=== PATIENT | female | born 1985 | race Caucasian/White ===

== ENCOUNTER 2021-09-22 12:55 | Inpatient (IN) | payer OTHER, SELFPAY ==
[~2021-09-22] VITALS: Ht 167.6 cm; Wt 87.3 kg
[2021-09-22] MEDS ORDERED: EFFE150C2 PO (13:12)
[2021-09-22] MEDS ORDERED: HORMONE SUPPLEMENT (13:12)
[2021-09-22] MEDS ORDERED: VALI5TAB PO (13:12)
[2021-09-22] MEDS ORDERED: SERO200T PO (13:12)
[2021-09-22 15:40] LABS: AMPHETAMINES LEVEL URINE NEGATIVE (NEGATIVE); BARBITURATES URINE NEGATIVE (NEGATIVE); BENZODIAZEPINES URINE POSITIVE (NEGATIVE); CANNABINOIDS URINE NEGATIVE (NEGATIVE); COCAINE METABOLITE URINE NEGATIVE (NEGATIVE); METHADONE URINE NEGATIVE (NEGATIVE); OPIATES URINE NEGATIVE (NEGATIVE); PHENCYCLIDINE URINE NEGATIVE (NEGATIVE)
[2021-09-22 15:54] LABS: HEMATOCRIT 47.9 % (36.0-47.0); HEMOGLOBIN 15.8 g/dl (12.0-15.5); MEAN CORPUSCULAR HEMOGLOBIN 30.7 pg (27.0-33.0); PLATELET COUNT, AUTOMATED 375 10^3/uL (150-450); RED BLOOD COUNT 5.15 10^6/uL (4.00-5.40); WHITE BLOOD COUNT 12.2 10^3/uL (4.0-10.0)
[2021-09-22 16:22] LABS: HCG, SERUM QUALITATIVE NEGATIVE (NEGATIVE)
[2021-09-22 16:27] LABS: ACETAMINOPHEN LEVEL < 2.0 UG/ML (10.0-30.0); ALBUMIN 4.5 GM/DL (3.2-5.2); ALT/SGPT 54 U/L (12-78); BILIRUBIN,DIRECT < 0.1 MG/DL (0.0-0.2); BILIRUBIN,TOTAL 0.2 MG/DL (0.2-1.0); BLOOD UREA NITROGEN 9 MG/DL (7-18); CALCIUM LEVEL 10.2 MG/DL (8.5-10.1); CARBON DIOXIDE LEVEL 28 MEQ/L (21-32); CHLORIDE LEVEL 108 MEQ/L (98-107); CREATININE FOR GFR 0.86 MG/DL (0.55-1.30); ETHYL ALCOHOL (ETHANOL) < 0.003 % (0.000-0.010); GLOMERULAR FILTRATION RATE > 60.0 (>60); GLUCOSE, FASTING 94 MG/DL (70-100); POTASSIUM SERUM 4.3 MEQ/L (3.5-5.1); SALICYLATE LEVEL 4.5 MG/DL (5.0-30.0); SODIUM LEVEL 141 MEQ/L (136-145); THYROID STIMULATING HORMONE 0.863 uIU/ML (0.358-3.740); TOTAL PROTEIN 8.1 GM/DL (6.4-8.2)
[2021-09-22 17:03] LABS: RSV AMPLIFICATION NEGATIVE (NEGATIVE)
[2021-09-22] MEDS ORDERED: TOPI50TA9 PO (17:46)
[2021-09-22] MEDS ORDERED: PRAZ1CAP PO (17:46)
[2021-09-22] MEDS ORDERED: GABA800T4 PO (17:46)
[2021-09-22] MEDS ORDERED: HOME MED LIST COMPLETE! XX SCH (18:00)
[2021-09-22] MEDS ORDERED: ACETAMINOPHEN TAB 650MG DOSE (2X325MG) PO PRN (18:10)
[2021-09-22] MEDS ORDERED: MOM 30ML SUSPENSION UDC PO PRN (18:10)
[2021-09-22] MEDS ORDERED: MAALOX 30 ML SUSP *UDC PO PRN (18:10)
[2021-09-22] MEDS ORDERED: diazePAM 5MG TABLET PO STA (18:45)
[2021-09-22 21:19] VITALS: BP 120/81
[2021-09-22] MEDS: QUEtiapine FUMARATE 200 MG TAB PO SCH (21:48)
[2021-09-23] MEDS: NICOTINE 21MG/24HR 1 EA TRANSDERMAL TD PRN (08:03)
[2021-09-23] MEDS ORDERED: diazePAM 2 MG TAB PO ONE (08:50)
[2021-09-23] MEDS: DIVALPROEX 250MG *ER* TAB PO SCH ×2 (09:00→11:02)
[2021-09-23] MEDS ORDERED: traZODone 50 MG TAB PO PRN (10:15)
--- NOTE | 2021-09-23 10:39 | CR.PDOC ---
General Date of Consultation: Sep 23, 2021 Attending Physician: Corrina Oliveira MD Consultation REASON FOR CONSULTATION/CHIEF COMPLAINT: Medical H&P HISTORY OF PRESENT ILLNESS: Patient is a 36-year-old female with past medical history of agoraphobia, PTSD, bipolar disorder with schizoaffective tendencies, depression, anxiety who presented to [facility] emergency room after being brought from [facility] ER for increased martine and decreased sleep. The patient also expressed increased feelings of depression, hopelessness, helplessness, racing thoughts. She denied homicidal or suicidal ideation, auditory or visual hallucinations. The patient was unkept and kept stating that she has not been able to sleep. The patient was later admitted to inpatient mental health unit after arrival to [facility] On my evaluation this AM, patient was not very engaging in conversation during evaluation. She did admit to increased feelings of depression and decreased sleep. She appeared uncapped. She denied chest pain, shortness of breath, fevers, chills, nausea, vomiting, lightheadedness or dizziness. REVIEW OF SYSTEMS: Negative except for what is mentioned above. PAST MEDICAL HISTORY: Agoraphobia, PTSD, bipolar disorder with schizoaffective tendencies, depression, anxiety PAST SURGICAL HISTORY: Total hysterectomy FAMILY HISTORY: no significant family history SOCIAL HISTORY: Smoker. Denies alcohol or illicit drug use. Lives alone in the local community. Follows with [facility]. ALLERGIES: Please see below. HOME MEDICATIONS: Please see below. PHYSICAL EXAMINATION: VS: Stable on RA CONSTITUTIONAL: No acute distress, resting comfortably, AAO x 3 EYES: PERRLA, EOM intact HENT, MOUTH: Normocephalic, atraumatic, moist mucous membranes, NECK: SUPPLE, no JVD, no lymphadenopathy, no carotid bruit CV: Regular rate and rhythm, S1S2 normal, no murmurs/rubs/gallops RESPIRATORY: Clear to auscultation bilaterally, no rales/rhonchi/wheezes GI: obese abd, BS positive in 4 quadrants, soft, nontender, nondistended, no rebound or guarding, no organomegaly : Deferred MUSCULOSKELETAL: Normal ROM. No cyanosis, clubbing, swelling, joint deformity, e xtremity edema INTEGUMENTARY: Intact, no rashes, no lesions, no erythema NEUROLOGIC: Cranial Nerves II-XII are intact, no focal deficits PSYCHIATRIC: Mood and affect are normal LABORATORY DATA: Please see below IMAGING: none ASSESSMENT: 36-year-old female with past medical history of agoraphobia, PTSD, bipolar disorder with schizoaffective tendencies, depression, anxiety admitted to [facility] for bipolar disorder. PLAN: Bipolar disorder, uncontrolled -Plan per psychiatric team Depression / anxiety / PTSD -Plan per psychiatry team DISPOSITION: Thank you kindly for this consult. We are signing off but if we are needed again, please do not hesitate to contact us at any time. Vital Signs/I&O Vital Signs Date Time Temp Pulse Resp B/P (MAP) Pulse Ox O2 Delivery O2 Flow Rate FiO2 09/22/21 21:19 97.7 81 16 120/81 (94) 98 Room Air Laboratory Data Labs 24H Laboratory Tests 2 09/22/21 15:20: Urine Opiates Screen NEGATIVE, Urine Methadone Screen NEGATIVE, Urine Barbiturates Screen NEGATIVE, Urine Phencyclidine Screen NEGATIVE, Urine Amphetamines Screen NEGATIVE, Urine Benzodiazepines Screen POSITIVEH, Urine Cocaine Metabolite Screen NEGATIVE, Urine Cannabinoids Screen NEGATIVE 09/22/21 15:42: Nucleated Red Blood Cells % (auto) 0.0, Anion Gap 5L, Glomerular Filtration Rate > 60.0, Calcium Level 10.2H, Total Bilirubin 0.2, Direct Bilirubin < 0.1, Aspartate Amino Transf (AST/SGOT) 27, Alanine Aminotransferase (ALT/SGPT) 54, Alkaline Phosphatase 109, Total Protein 8.1, Albumin 4.5, Albumin/Globulin Ratio 1.3, Thyroid Stimulating Hormone (TSH) 0.863, Human Chorionic Gonadotropin, Qual NEGATIVE, Salicylates Level 4.5L, Acetaminophen Level < 2.0L, Ethyl Alcohol Level < 0.003, Coronavirus (COVID-19)(PCR) NEGATIVE, Influenza Type A (RT-PCR) NEGATIVE, Influenza Type B (RT-PCR) NEGATIVE, Respiratory Syncytial Virus (PCR) NEGATIVE CBC/BMP Laboratory Tests 09/22/21 15:42 Allergies Coded Allergies: fluoxetine (Verified Allergy, Unknown, 09/22/21) hydromorphone (Verified Allergy, Unknown, 09/22/21) hydroxyzine (Verified Allergy, Unknown, 09/22/21) lorazepam (Verified Allergy, Unknown, 09/22/21) zolpidem (Verified Allergy, Unknown, 09/22/21) Home Medications Scheduled Gabapentin (Gabapentin) 800 Mg Tablet, 800 MG PO TID, (Reported) Prazosin Hcl (Prazosin HCl) 1 Mg Capsule, 1 MG PO QHS, (Reported) Quetiapine Fumarate (Seroquel) 200 Mg Tablet, 200 MG PO QHS, (Reported) Topiramate (Topiramate) 50 Mg Tablet, 50 MG PO QHS, (Reported) Venlafaxine HCl (Effexor Xr) 150 Mg Cap.er.24h, 150 MG PO DAILY, (Reported) Scheduled PRN Diazepam (Valium) 5 Mg Tablet, 5 MG PO TID PRN for anxiety, (Reported) Miscellaneous Medications [hormone supplement] , (Reported) Corrina Oliveira MD Sep 23, 2021 10:39
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
[2021-09-23] MEDS: GABAPENTIN 400MG CAP PO SCH ×3 (11:03→20:02)
[2021-09-23] MEDS: VENLAFAXINE **XR** 75MG CAPSULE PO SCH (11:03)
[2021-09-23 12:08] LABS: HEMOGLOBIN A1c 5.5 %
[2021-09-23 12:17] LABS: CHOLESTEROL RISK RATIO 3.532 (<5)
[2021-09-23] MEDS: diazePAM 5MG TABLET PO SCH ×2 (16:39→20:02)
[2021-09-23 18:00] VITALS: BP 145/82
[2021-09-23] MEDS: IBUPROFEN 600MG TAB PO PRN (19:57)
[2021-09-23] MEDS: QUEtiapine FUMARATE 200 MG TAB PO SCH (20:01)
[2021-09-23] MEDS ORDERED: PRAZOSIN 1 MG CAP PO SCH (21:00)
[2021-09-24 06:42] VITALS: BP 150/87
[2021-09-24] MEDS: DIVALPROEX 250MG *ER* TAB PO SCH (08:05)
[2021-09-24] MEDS: VENLAFAXINE **XR** 75MG CAPSULE PO SCH (08:05)
[2021-09-24] MEDS: GABAPENTIN 400MG CAP PO SCH ×3 (08:05→20:29)
[2021-09-24] MEDS: diazePAM 5MG TABLET PO SCH ×3 (08:05→20:29)
[2021-09-24] MEDS: NICOTINE 21MG/24HR 1 EA TRANSDERMAL TD PRN (08:05)
[2021-09-24] MEDS: IBUPROFEN 600MG TAB PO PRN ×2 (08:08→15:22)
[2021-09-24] MEDS ORDERED: diazePAM 2 MG TAB PO ONE (13:00)
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
[2021-09-24] MEDS ORDERED: VENLAFAXINE 37.5 MG TAB PO ONE (14:00)
[2021-09-24 18:57] VITALS: BP 136/86
[2021-09-24 20:28] VITALS: BP 136/86
[2021-09-24] MEDS: QUEtiapine FUMARATE 200 MG TAB PO SCH (20:29)
[2021-09-24] MEDS ORDERED: PRAZOSIN 1 MG CAP PO SCH (21:00)
[2021-09-25] MEDS: IBUPROFEN 600MG TAB PO PRN (04:43)
[2021-09-25 06:40] VITALS: BP 132/66
[2021-09-25] MEDS: GABAPENTIN 400MG CAP PO SCH (08:04)
[2021-09-25] MEDS: NICOTINE 21MG/24HR 1 EA TRANSDERMAL TD PRN (08:05)
[2021-09-25] MEDS: diazePAM 5MG TABLET PO SCH (08:05)
[2021-09-25] MEDS ORDERED: VENLAFAXINE **XR** 75MG CAPSULE PO SCH (09:00)
[2021-09-25] MEDS ORDERED: VENL75CA47 PO (11:00)
[2021-09-25] MEDS ORDERED: NICO21PAT TD (11:00)
[2021-09-25] MEDS ORDERED: MINI1CAP PO (11:00)
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
== END 2021-09-25 14:30 | disposition home or self-care (01) | DRG 755 ==
LOC: M ED 12:55 → M ED INP 18:06 → M PSY 21:10
PROVIDERS: ADMIT Psychiatry & Neurology Psychiatry; ATTEND Psychiatry & Neurology Psychiatry
DX: F43.10 Post-traumatic stress disorder, unspecified (principal); F60.3 Borderline personality disorder; F41.1 Generalized anxiety disorder; F31.9 Bipolar disorder, unspecified; G47.00 Insomnia, unspecified; F17.210 Nicotine dependence, cigarettes, uncomplicated; Z20.822 Contact with and (suspected) exposure to COVID-19; Z79.899 Other long term (current) drug therapy; Z88.8 Allergy status to other drugs, medicaments and biological substances

== ENCOUNTER 2022-06-22 21:47 | Inpatient (IN) | payer OTHER ==
[~2022-06-22] VITALS: Ht 167.6 cm; Wt 100.0 kg
[~2022-06-22 21:47] MED LIST: EFFE150C2 PO; GABA800T4 PO; HORMONE SUPPLEMENT; MINI1CAP PO; NICO21PAT TD; PRAZ1CAP PO; SERO200T PO; TOPI50TA9 PO; VALI5TAB PO; VENL75CA47 PO
[2022-06-22 22:40] LABS: HEMATOCRIT 45.4 % (36.0-47.0); HEMOGLOBIN 15.3 g/dl (12.0-15.5); MEAN CORPUSCULAR HEMOGLOBIN 30.8 pg (27.0-33.0); MEAN CORPUSCULAR HGB CONC 33.7 g/dl (32.0-36.5); MEAN CORPUSCULAR VOLUME 91.5 fl (80.0-96.0); PLATELET COUNT, AUTOMATED 343 10^3/uL (150-450); RED BLOOD COUNT 4.96 10^6/uL (4.00-5.40); WHITE BLOOD COUNT 14.9 10^3/uL (4.0-10.0)
[2022-06-22] MEDS ORDERED: diazePAM 2 MG TAB PO ONE (22:40)
[2022-06-22 23:09] LABS: RSV AMPLIFICATION NEGATIVE (NEGATIVE)
[2022-06-22 23:12] LABS: AMPHETAMINES LEVEL URINE NEGATIVE (NEGATIVE); BARBITURATES URINE NEGATIVE (NEGATIVE); BENZODIAZEPINES URINE POSITIVE (NEGATIVE); CANNABINOIDS URINE POSITIVE (NEGATIVE); COCAINE METABOLITE URINE NEGATIVE (NEGATIVE); METHADONE URINE NEGATIVE (NEGATIVE); OPIATES URINE NEGATIVE (NEGATIVE); PHENCYCLIDINE URINE NEGATIVE (NEGATIVE)
[2022-06-22 23:46] LABS: ALBUMIN 4.9 GM/DL (3.2-5.2); ALT/SGPT 97 U/L (12-78); BILIRUBIN,DIRECT < 0.1 MG/DL (0.0-0.2); BILIRUBIN,TOTAL 0.3 MG/DL (0.2-1.0); BLOOD UREA NITROGEN 12 MG/DL (7-18); CARBON DIOXIDE LEVEL 26 MEQ/L (21-32); CHLORIDE LEVEL 104 MEQ/L (98-107); CREATININE FOR GFR 0.96 MG/DL (0.55-1.30); ETHYL ALCOHOL (ETHANOL) 0.005 % (0.000-0.010); GLOMERULAR FILTRATION RATE > 60.0 (>60); GLUCOSE, FASTING 98 MG/DL (70-100); POTASSIUM SERUM 4.4 MEQ/L (3.5-5.1); SALICYLATE LEVEL 4.8 MG/DL (5.0-30.0); SODIUM LEVEL 136 MEQ/L (136-145); TOTAL PROTEIN 8.2 GM/DL (6.4-8.2)
[2022-06-23] LABS: HCG, SERUM QUALITATIVE NEGATIVE (NEGATIVE)
[2022-06-23 00:33] LABS: ACETAMINOPHEN LEVEL < 2.0 UG/ML (10.0-30.0)
[2022-06-23] MEDS ORDERED: PRAZ1CAP PO (01:28)
[2022-06-23] MEDS ORDERED: QUET300T2 PO (01:29)
[2022-06-23] MEDS ORDERED: VENL150C43 PO (01:29)
[2022-06-23] MEDS ORDERED: QUET50TA4 PO (01:29)
[2022-06-23] MEDS ORDERED: HOME MED LIST COMPLETE! XX SCH (01:30)
[2022-06-23] MEDS ORDERED: MOM 30ML SUSPENSION UDC PO PRN (03:25)
[2022-06-23 03:38] VITALS: BP 154/66
[2022-06-23 06:22] VITALS: BP 125/79
[2022-06-23] MEDS: GABAPENTIN 400MG CAP PO SCH ×3 (07:40→20:16)
[2022-06-23] MEDS: VENLAFAXINE **XR** 75MG CAPSULE PO SCH (07:41)
[2022-06-23] MEDS: NICOTINE 21MG/24HR 1 EA TRANSDERMAL TD PRN (07:41)
[2022-06-23] MEDS ORDERED: QUEtiapine FUMARATE 100 MG TAB PO SCH (09:00)
[2022-06-23] MEDS: diazePAM 5MG TABLET PO PRN (09:14)
[2022-06-23] MEDS ORDERED: traMADol 50 MG TAB PO ONE (10:00)
[2022-06-23] MEDS: IBUPROFEN 200MG TAB PO SCH ×2 (12:30→18:52)
[2022-06-23 16:12] VITALS: BP 122/78
[2022-06-23] MEDS: traMADol 50 MG TAB PO PRN (16:46)
[2022-06-23] MEDS: MAALOX 30 ML SUSP *UDC PO PRN (16:47)
[2022-06-23] MEDS: traZODone 50 MG TAB PO PRN (20:16)
[2022-06-23] MEDS: PRAZOSIN 1 MG CAP PO SCH (20:17)
[2022-06-23] MEDS ORDERED: QUEtiapine FUMARATE 25 MG TAB PO SCH (21:00)
[2022-06-23] MEDS ORDERED: QUEtiapine FUMARATE 50MG TAB PO SCH (21:00)
[2022-06-24] MEDS: diazePAM 5MG TABLET PO PRN ×2 (02:41→19:49)
[2022-06-24] MEDS: traMADol 50 MG TAB PO PRN ×3 (02:42→15:02)
[2022-06-24 06:31] VITALS: BP 129/85
[2022-06-24] MEDS: QUEtiapine FUMARATE 25 MG TAB PO SCH (07:52)
[2022-06-24] MEDS: VENLAFAXINE **XR** 75MG CAPSULE PO SCH (07:52)
[2022-06-24] MEDS: GABAPENTIN 400MG CAP PO SCH ×3 (07:53→20:38)
[2022-06-24] MEDS: NICOTINE 21MG/24HR 1 EA TRANSDERMAL TD PRN (07:54)
[2022-06-24] MEDS: IBUPROFEN 200MG TAB PO SCH ×3 (08:00→17:21)
[2022-06-24] MEDS: OLANZapine ORAL DISINTEGRATING TAB 5MG PO PRN ×2 (10:36→17:21)
[2022-06-24 16:17] VITALS: BP 124/73
[2022-06-24] MEDS: PRAZOSIN 1 MG CAP PO SCH (20:38)
[2022-06-24] MEDS: QUEtiapine FUMARATE 100 MG TAB PO SCH (20:38)
[2022-06-25 06:19] VITALS: BP 141/75
[2022-06-25] MEDS: VENLAFAXINE **XR** 75MG CAPSULE PO SCH (08:43)
[2022-06-25] MEDS: NICOTINE 21MG/24HR 1 EA TRANSDERMAL TD PRN (08:43)
[2022-06-25] MEDS: traMADol 50 MG TAB PO PRN ×2 (08:43→16:56)
[2022-06-25] MEDS: GABAPENTIN 400MG CAP PO SCH ×3 (08:43→20:20)
[2022-06-25] MEDS: IBUPROFEN 200MG TAB PO SCH ×3 (08:44→18:14)
[2022-06-25] MEDS: QUEtiapine FUMARATE 25 MG TAB PO SCH (08:44)
[2022-06-25] MEDS: OLANZapine ORAL DISINTEGRATING TAB 5MG PO PRN (10:36)
[2022-06-25] MEDS: ACETAMINOPHEN TAB 650MG DOSE (2X325MG) PO PRN ×2 (10:46→20:21)
[2022-06-25] MEDS: LIDOCAINE 5% (LIDODERM) PATCH TD SCH (13:50)
[2022-06-25] MEDS: diazePAM 5MG TABLET PO PRN (16:57)
[2022-06-25 17:28] VITALS: BP 112/65
[2022-06-25] MEDS: traZODone 50 MG TAB PO PRN (20:20)
[2022-06-25] MEDS: PRAZOSIN 1 MG CAP PO SCH (20:20)
[2022-06-25] MEDS: QUEtiapine FUMARATE 100 MG TAB PO SCH (20:20)
[2022-06-25] MEDS: **NOTE PATIENT COMMENT** MISC XX SCH (20:24)
[2022-06-26 06:26] VITALS: BP 132/89
[2022-06-26] MEDS: traMADol 50 MG TAB PO PRN ×3 (06:47→19:52)
[2022-06-26 07:25] LABS: CHOLESTEROL RISK RATIO 5.386 (<5)
[2022-06-26] MEDS: QUEtiapine FUMARATE 25 MG TAB PO SCH (08:07)
[2022-06-26] MEDS: GABAPENTIN 400MG CAP PO SCH ×3 (08:07→22:03)
[2022-06-26] MEDS: NICOTINE 21MG/24HR 1 EA TRANSDERMAL TD PRN (08:07)
[2022-06-26] MEDS: VENLAFAXINE **XR** 75MG CAPSULE PO SCH (08:07)
[2022-06-26] MEDS: LIDOCAINE 5% (LIDODERM) PATCH TD SCH (08:08)
[2022-06-26] MEDS: IBUPROFEN 200MG TAB PO SCH ×3 (08:08→17:24)
[2022-06-26] MEDS: OLANZapine ORAL DISINTEGRATING TAB 5MG PO PRN (12:59)
[2022-06-26 18:09] VITALS: BP 151/83
[2022-06-26] MEDS: diazePAM 5MG TABLET PO PRN (19:51)
[2022-06-26] MEDS: traZODone 50 MG TAB PO PRN (22:02)
[2022-06-26] MEDS: **NOTE PATIENT COMMENT** MISC XX SCH (22:03)
[2022-06-26] MEDS: QUEtiapine FUMARATE 100 MG TAB PO SCH (22:03)
[2022-06-26] MEDS: PRAZOSIN 1 MG CAP PO SCH (22:03)
[2022-06-27 06:51] VITALS: BP 141/79
[2022-06-27] MEDS: VENLAFAXINE **XR** 75MG CAPSULE PO SCH (08:12)
[2022-06-27] MEDS: GABAPENTIN 400MG CAP PO SCH ×3 (08:12→21:47)
[2022-06-27] MEDS: QUEtiapine FUMARATE 25 MG TAB PO SCH (08:12)
[2022-06-27] MEDS: traMADol 50 MG TAB PO PRN ×2 (08:13→18:02)
[2022-06-27] MEDS: NICOTINE 21MG/24HR 1 EA TRANSDERMAL TD PRN (08:13)
[2022-06-27] MEDS: LIDOCAINE 5% (LIDODERM) PATCH TD SCH (08:14)
[2022-06-27] MEDS: IBUPROFEN 200MG TAB PO SCH ×3 (08:15→18:00)
[2022-06-27] MEDS ORDERED: QUET1TAB17 PO (08:46)
[2022-06-27] MEDS ORDERED: NICO21PAT TD (08:46)
[2022-06-27] MEDS ORDERED: GABA800T4 PO (08:46)
[2022-06-27] MEDS ORDERED: QUET300T2 PO (08:46)
[2022-06-27] MEDS ORDERED: PRAZ1CAP PO (08:46)
[2022-06-27] MEDS ORDERED: TRAZ-252 PO (08:46)
[2022-06-27] MEDS ORDERED: VENL75CA47 PO (08:46)
[2022-06-27] MEDS ORDERED: LIDO5TD TD (08:46)
[2022-06-27] MEDS: OLANZapine ORAL DISINTEGRATING TAB 5MG PO PRN (10:55)
[2022-06-27] MEDS: **NOTE PATIENT COMMENT** MISC XX SCH (10:56)
[2022-06-27] MEDS: diazePAM 5MG TABLET PO PRN (12:55)
[2022-06-27 18:20] VITALS: BP 153/90
[2022-06-27] MEDS: MAALOX 30 ML SUSP *UDC PO PRN (20:00)
[2022-06-27] MEDS: traZODone 50 MG TAB PO PRN (21:47)
[2022-06-27] MEDS: QUEtiapine FUMARATE 100 MG TAB PO SCH (21:47)
[2022-06-27 21:49] VITALS: BP 133/86
[2022-06-27] MEDS: PRAZOSIN 1 MG CAP PO SCH (21:49)
[2022-06-28 06:36] VITALS: BP 136/78
[2022-06-28] MEDS: QUEtiapine FUMARATE 25 MG TAB PO SCH (07:56)
[2022-06-28] MEDS: VENLAFAXINE **XR** 75MG CAPSULE PO SCH (07:56)
[2022-06-28] MEDS: GABAPENTIN 400MG CAP PO SCH (07:56)
[2022-06-28] MEDS: NICOTINE 21MG/24HR 1 EA TRANSDERMAL TD PRN (07:57)
[2022-06-28] MEDS: IBUPROFEN 200MG TAB PO SCH (08:00)
[2022-06-28] MEDS: LIDOCAINE 5% (LIDODERM) PATCH TD SCH (08:01)
== END 2022-06-28 10:48 | disposition home or self-care (01) | DRG 753 ==
LOC: M ED 21:47 → M ED INP 06-23 03:25 → M PSY 06-23 04:10
PROVIDERS: ADMIT Psychiatry & Neurology Psychiatry; ATTEND Psychiatry & Neurology Psychiatry
DX: F31.9 Bipolar disorder, unspecified (principal); F43.10 Post-traumatic stress disorder, unspecified; R45.851 Suicidal ideations; F40.00 Agoraphobia, unspecified; K76.0 Fatty (change of) liver, not elsewhere classified; M75.31 Calcific tendinitis of right shoulder; Z79.899 Other long term (current) drug therapy; Z91.51 Personal history of suicidal behavior; Z63.8 Other specified problems related to primary support group; Z90.79 Acquired absence of other genital organ(s)